=== PATIENT | female | born 2000 | race Caucasian/White ===

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

== ENCOUNTER 2018-01-04 20:07 | Emergency (ER) | payer OTHER ==
[2018-01-04 20:07] VITALS: O2SAT 100
[2018-01-04 20:16] VITALS: RESP 18; TEMP 97.5
[2018-01-04 20:20] LABS: APPEARANCE,URINE Slightly Cloudy; BILIRUBIN,URINE NEGATIVE (NEGATIVE); COLOR,URINE Amber; GLUCOSE, URINE (UA) NEGATIVE (NEGATIVE); KETONES,URINE 1+ (NEGATIVE); LEUKOCYTE ESTERASE ,URINE TRACE (NEGATIVE); NITRATE,URINE NEGATIVE (NEGATIVE); OCCULT BLOOD,URINE NEGATIVE (NEG-TRACE); PH,URINE 5.5
[2018-01-04 20:31] LABS: BACTERIA 2+ (< 1+); CRYSTALS NEGATIVE (0-3 AVE/HPF)
[2018-01-04] MEDS ORDERED: CEFUROXIME 250 MG/5 ML PDR PO ONE (20:58)
[2018-01-04 21:20] VITALS: BP 110/65; PULSE 99
== END 2018-01-04 21:15 | disposition home or self-care (01) | DRG 781 ==
LOC: ED 20:07
DX: O23.12 Infections of bladder in pregnancy, second trimester (principal); Z3A.16 16 weeks gestation of pregnancy
CPT/HCPCS: 81001; 87088; 99282; A9270-GY

== ENCOUNTER 2018-02-06 12:40 | Emergency (ER) | payer OTHER ==
[2018-02-06] MEDS ORDERED: LACTATED RINGERS 1,000 ML IV ONE (12:51)
[2018-02-06] MEDS ORDERED: SODIUM CHLORIDE 0.9% FLUSH 10 ML SOL IV PRN (12:51)
[2018-02-06 13:04] LABS: BASOPHILS % (AUTO) 0 % (0-3); EOSINOPHILS % (AUTO) 0 % (0-9); HEMATOCRIT 33 % (35-47); HEMOGLOBIN 12.2 gm/dl (12.0-15.5); LYMPHOCYTES % (AUTO) 10.6 % (10-50); MEAN CORPUSCULAR HEMOGLOBIN 31.3 pg (27.0-32.0); MEAN CORPUSCULAR HGB CONC 36.5 gm/dl (32.0-36.0); MEAN CORPUSCULAR VOLUME 86 fL (81-99); MONOCYTES % (AUTO) 5.5 % (0-12); NEUTROPHILS % (AUTO) 83.3 % (37-80)
[2018-02-06 13:15] LABS: CALCIUM 9.1 mg/dl (8.5-10.1); CARBON DIOXIDE 23.5 mEq/L (21-32); CREATININE 0.67 mg/dl (0.60-1.00); POTASSIUM 3.4 mMol/L (3.5-5.1)
[2018-02-06] MEDS ORDERED: POTASSIUM CHLORIDE 10 MEQ TER PO ONE (13:23)
[2018-02-06 13:27] VITALS: RESP 16; TEMP 97.8
[2018-02-06] MEDS ORDERED: POTASSIUM CHLORIDE 10 MEQ TER ONE (13:36)
[2018-02-06 14:44] LABS: APPEARANCE,URINE Slightly Cloudy; BILIRUBIN,URINE NEGATIVE (NEGATIVE); COLOR,URINE Dark yellow; GLUCOSE, URINE (UA) NEGATIVE (NEGATIVE); KETONES,URINE 3+ (NEGATIVE); LEUKOCYTE ESTERASE ,URINE 2+ (NEGATIVE); NITRATE,URINE NEGATIVE (NEGATIVE); OCCULT BLOOD,URINE NEGATIVE (NEG-TRACE); PH,URINE 5.5
[2018-02-06 15:02] LABS: BACTERIA 1+ (< 1+); CRYSTALS NEGATIVE (0-3 AVE/HPF); RBC,URINE NEG (0-3AV/HPF)
[2018-02-06 16:17] VITALS: BP 114/66; PULSE 85; O2SAT 100
== END 2018-02-06 15:20 | disposition home or self-care (01) | DRG 312 ==
LOC: ED 12:40
DX: R55 Syncope and collapse (principal); Z3A.20 20 weeks gestation of pregnancy
CPT/HCPCS: 59025; 80048; 81001; 85025; 87088; 96365; 99282; 99285; A9270-GY

== ENCOUNTER 2018-04-15 23:01 | Emergency (ER) | payer OTHER ==
[2018-04-15 23:21] VITALS: RESP 24; TEMP 97.4
[2018-04-15 23:38] LABS: APPEARANCE,URINE Slightly Cloudy; BILIRUBIN,URINE NEGATIVE (NEGATIVE); COLOR,URINE Yellow; GLUCOSE, URINE (UA) NEGATIVE (NEGATIVE); KETONES,URINE NEGATIVE (NEGATIVE); LEUKOCYTE ESTERASE ,URINE 2+ (NEGATIVE); NITRATE,URINE NEGATIVE (NEGATIVE); OCCULT BLOOD,URINE 3+ (NEG-TRACE); PH,URINE 7.5; RBC,URINE 40-50 (0-3AV/HPF); UROBILINOGEN,URINE >=8.0 (0.2-1.0 EU)
[2018-04-15 23:39] LABS: BACTERIA 2+ (< 1+); CRYSTALS 1+ AMORPHS (0-3 AVE/HPF)
[2018-04-16] MEDS ORDERED: SULFAMETHOXAZOLE/TRIMETHOPRI 800/160 MG PO ONE (01:33)
[2018-04-16 05:41] VITALS: BP 145/89; PULSE 117; O2SAT 97
== END 2018-04-16 01:54 | disposition home or self-care (01) | DRG 781 ==
LOC: ED 23:01
DX: O23.13 Infections of bladder in pregnancy, third trimester (principal); Z3A.30 30 weeks gestation of pregnancy
CPT/HCPCS: 59025; 81001; 84112; 87088; 99283; 99284; A9270-GY